=== PATIENT | male | born 1985 | race Two or more races ===

== ENCOUNTER 2022-01-11 22:56 | Emergency (ER) | payer OTHER, SELFPAY ==
[2022-01-11 23:01] VITALS: BP 154/83; PULSE 99; RESP 18; TEMP 37.2; O2SAT 97; BMI 21.2
[2022-01-12 04:33] VITALS: BP 174/78; PULSE 78; RESP 18; O2SAT 98
--- NOTE | 2022-01-12 09:53 | ED_ITS ---
HPI - Skin/Abscess/Foreign Bdy General Chief complaint: Skin/Abscess/Foreign Body Stated complaint: cyst Time Seen by Provider: 01/12/22 09:37 Source: patient Mode of arrival: ambulatory Limitations: no limitations History of Present Illness HPI narrative: 36-year-old male no past medical history presents to ED for left buttock pain. Patient states left buttock cheek has slight lump that is red and tender on pal pation. Patient denies any rectal pain, abdominal pain, nausea, vomiting, fever, or chills. Related Data Previous Rx's Medication Instructions Recorded cephalexin 500 mg capsule 500 mg PO QID 7 days #28 caps 01/12/22 doxycycline hyclate 100 mg capsule 100 mg PO BID 7 days #14 caps 01/12/22 naproxen 500 mg tablet 500 mg PO BID PRN pain 10 days #20 01/12/22 tabs oxycodone 5 mg capsule 5 mg PO TID PRN pain 3 days #9 caps 01/12/22 Allergies Allergy/AdvReac Type Severity Reaction Status Date / Time No Known Allergies Allergy Unverified 02/09/20 17:05 Review of Systems Review of Systems: Left buttock pain/lump Yes all other systems are reviewed and are negative PMFSH Social History Social History Advance Directives: No Advance Directives Information Provided: Yes Physical Exam Vital Signs: Vital Signs: Last Vital Signs Temp 98.9 F 01/11/22 23:01 Pulse 78 01/12/22 04:33 Resp 18 01/12/22 04:33 BP 174/78 H 01/12/22 04:33 Pulse Ox 98 01/12/22 04:33 O2 Del Method 01/12/22 04:33 BMI result Body Mass Index 21.2 Const: General: cooperative, healthy appearing, comfortable, no acute d istress, well developed, alert, awake and Physically active Orientation/consciousness: patient oriented x3 HEENT: Head: Yes normal to inspection, Yes No palpable skull fracture present, Yes normocephalic, Yes atraumatic and No abrasion Eyes: General: appearance normal, both eyes and all related structures Neck: Neck: Yes normal visual inspection, Yes full ROM, Yes no lymphadenopathy, Yes no meningeal signs, Yes trachea midline, Yes supple, No anterior neck swelling and No tender Chest: Chest palpation & inspection: normal inspection of the chest and normal palpation of entire chest wall Resp: Effort & Inspection: normal respiratory effort and able to speak in complete sentences Auscultation: clear to auscultation bilaterally Cardio: Jugular venous distension: no JVD Heart sounds: S1 normal heart sound present and S2 normal heart sound present GI: Inspection: Yes normal to inspection and No abdominal wall ecchymosis Palpation (GI): Soft to palpation, not firm, nontender, no guarding and not rigid : General: No CVA tenderness and Yes no CVA tenderness Back/Spine/Pelvis: Back: no CVA tenderness, No CVA tenderness and No back tenderness Skin: General skin exam: no rashes or lesions noted and elasticity normal Full body images: 1. Small erythematous lump nonfluctuant. With surrounding erythema. Negative for rectal or anal abscess. Neuro: General: patient oriented x3, gait normal, no meningeal signs and CN's II-XI intact bilaterally Cranial nerves: Yes CN's II-XII intact bilaterally Extrem: General: Yes normal to inspection and Yes full ROM Psych: Appearance: grossly normal, well kempt and not disheveled Course Course Course Narrative: Bedside ultrasound will be used to evaluate area Reevaluation(s) Reevaluation #1: Bedside ultrasound shows very small ( not much) collection of pus with more surrounding cobblestone appearance. Discussed with patient presently not beneficial for incision and drainage due to small collection pus and more c ellulitic cobblestone appearance. Also lump is not fluctuant. Was discussed with patient to start antibiotics and warm compression of skin. Patient was informed to take medications and return to the ED if worsening or no improvement. Time: 10:02 MDM - Skin/Abscess/Foreign Bdy MDM Narrative Medical decision making narrative: Abscess early cellulitis. Discharge Plan Discharge Clinical Impression: Cellulitis, Abscess Patient Disposition: Home, Self-Care Instructions: Cellulitis (ED), Abscess (ED), Warm Compress or Soak (ED) Additional Instructions: Early abscess not yet ready to be drained. He will be discharged with antibiotics. Recommend warm compression on area 4 times a day for 15 minutes. Return to the ED immediately for worsening pain, increased swelling, drainage, fever, chills, rectal pain, anal pain, abdominal pain, worsening redness, or any other concerning symptoms. Please follow up with PCP. Prescriptions: New cephalexin 500 mg capsule 500 mg PO QID 7 Days Qty: 28 0RF doxycycline hyclate 100 mg capsule 100 mg PO BID 7 Days Qty: 14 0RF naproxen 500 mg tablet 500 mg PO BID PRN (Reason: pain) 10 Days Qty: 20 0RF oxycodone 5 mg capsule 5 mg PO TID PRN (Reason: pain) 3 Days Qty: 9 0RF Rx Instructions: Partial Fill upon patient request. side effect is drowsiness. Do not take at work or while driving. Stand Alone Forms: Work/School Release Interventions: ED Discharge Assessment Last Done: 01/12/22 10:20 Discharge Date/Time: 01/12/22 10:21 Print Language: Portuguese
== END 2022-01-12 10:21 | disposition home or self-care (01) ==
PROVIDERS: Emergency Provider Emergency Medicine
DX: L03.317 Cellulitis of buttock (principal); Z79.899 Other long term (current) drug therapy
CPT/HCPCS: 99282

== ENCOUNTER 2024-11-02 15:42 | Emergency (ER) | payer OTHER, SELFPAY ==
[2024-11-02 17:07] VITALS: BP 118/66; PULSE 78; RESP 18; TEMP 36.7; O2SAT 98; BMI 24.7
--- NOTE | 2024-11-02 17:35 | ED_ITS ---
HPI - General Adult General Chief complaint: General Medical Stated complaint: Tick bite Time Seen by Provider: 11/02/24 17:25 Source: patient Mode of arrival: ambulatory Limitations: no limitations History of Present Illness ED Provider: Ck Currie HPI narrative: 38 yold male healthy presents to the ED for finding tick on right flank last night and he removed it. Patient states area of right flank is now circular rash that is erythematous. Related Data Previous Rx's ?Medication ?Instructions ?Recorded cephalexin 500 mg capsule 500 mg PO QID 7 days #28 caps 01/12/22 doxycycline hyclate 100 mg capsule 100 mg PO BID 7 days #14 caps 01/12/22 naproxen 500 mg tablet 500 mg PO BID PRN pain 10 days #20 01/12/22 tabs oxycodone 5 mg capsule 5 mg PO TID PRN pain 3 days #9 caps 01/12/22 doxycycline hyclate 100 mg capsule 100 mg PO BID #14 caps 11/02/24 Allergies Allergy/AdvReac Type Severity Reaction Status Date / Time No Known Allergies Allergy Verified 11/02/24 17:12 Review of Systems 2 Review of Systems: found tick Yes all other systems are reviewed and are negative [facility] Social History Social History Advance Directives: No Advance Directives Information Provided: No Do you have a plan to hurt others: No Plan Physical Exam ED Vital Signs: Vital Signs - 24 hr 11/02/24 17:07 Temperature 98.1 F Pulse Rate 78 Respiratory Rate 18 Blood Pressure 118/66 Pulse Oximetry 98 Oxygen Delivery Method Room Air BMI result Body Mass Index 24.7 Const General: cooperative, healthy appearing, comfortable, no acute distress, alert, awake and Physically active Orientation/consciousness: patient oriented x3 HENMT Head: Yes normal to inspection, Yes No palpable skull fracture present, Yes normocephalic and Yes atraumatic Eyes General: appearance normal, both eyes and all related structures Neck Neck: Yes normal visual inspection, Yes full ROM, Yes no lymphadenopathy, Yes no meningeal signs, Yes trachea midline, Yes supple, No anterior neck swelling and No tender Chest Chest palpation & inspection: normal inspection of the chest and normal palpation of entire chest wall Resp Effort & Inspection: normal respiratory effort and able to speak in complete sentences Auscultation: clear to auscultation bilaterally Cardio Jugular venous distension: no JVD Heart sounds: S1 normal heart sound present and S2 normal heart sound present GI Inspection: Yes normal to inspection Palpation (GI): Soft to palpation, not firm, nontender, no guarding and not rigid General: Yes no CVA tenderness Back/Spine/Pelvis Back: no CVA tenderness and No back tenderness Back/spine/pelvis image: 2 1. positive for circular area of erythema. negative for any pus discharge, or foul odor. Skin General skin exam: no rashes or lesions noted, elasticity normal and turgor normal Neuro General: patient oriented x3, gait normal, tone normal, moves all extremities, Normal light touch and pain sensation, no meningeal signs, no focal motor deficits and CN's II-XI intact bilaterally Extrem General: Yes normal to inspection, Yes full ROM and Yes capillary refill normal Psych Appearance: grossly normal, well kempt and not disheveled Medical Decision Making Medical Decision Making MDM Narrative: 38-year-old male presents to ED for for tick bite. Patient has found a tick on his right flank yesterday and now area is red and sore. Patient denies any fever, chills, chest pain or shortness of breath. Patient is not septic vital signs stable. Patietn explained worrisome signs and inforemd to return to the ED immediatley. no suspecting shingles, ostoemyelitits, fracture, abscess, or any other life threatenign eitology. Differential Diagnosis Differential Diagnoses: The differential diagnosis associated with the presentation includes (Cellulitis, tick bite) Admission/Observation Consideration of admission/observation: Escalation of care including admission/observation considered Independent Historian Clinical information obtained from an independent historian. History obtained from or confirmed by: Other (Patient) Prescription Management I considered prescription management with: Antibiotic Discharge Plan Discharge Clinical Impression: Tick bite Patient Disposition: Home, Self-Care Instructions: Tick Bite (ED) Additional Instructions: Flank area have area of circular redness you will be discharged with prescription for doxycycline for possible Lyme disease due to take bite. Return to the ED for any worsening redness, rash, body aches, fever, chills, nausea, vomiting, or any other concerning symptoms. Reccomend follow up with PCP Prescriptions: New doxycycline hyclate 100 mg capsule 100 mg PO BID Qty: 14 0RF No Action cephalexin 500 mg capsule 500 mg PO QID 7 Days Qty: 28 0RF doxycycline hyclate 100 mg capsule 100 mg PO BID 7 Days Qty: 14 0RF naproxen 500 mg tablet 500 mg PO BID PRN (Reason: pain) 10 Days Qty: 20 0RF oxycodone 5 mg capsule 5 mg PO TID PRN (Reason: pain) 3 Days Qty: 9 0RF Rx Instructions: Partial Fill upon patient request. side effect is drowsiness. Do not take at work or while driving. Stand Alone Forms: Work/School Release Interventions: ED Discharge Assessment Last Done: 11/02/24 17:45 Discharge Date/Time: 11/02/24 17:45 Print Language: Macedonian
[2024-11-02 17:45] VITALS: BP 118/66; PULSE 78; RESP 18; TEMP 36.7; O2SAT 98
== END 2024-11-02 17:45 | disposition home or self-care (01) ==
LOC: HO.ED 17:45
PROVIDERS: Emergency Provider Emergency Medicine Emergency Medical Services
DX: S30.861A Insect bite (nonvenomous) of abdominal wall, initial encounter (principal); W57.XXXA Bitten or stung by nonvenomous insect and other nonvenomous arthropods, initial encounter; R21 Rash and other nonspecific skin eruption; Y93.9 Activity, unspecified; Y92.9 Unspecified place or not applicable; Y99.9 Unspecified external cause status
CPT/HCPCS: 99282; 99283